=== PATIENT | male | born 1960 | race Caucasian/White ===

== ENCOUNTER 2021-01-27 15:21 | Emergency (ER) | payer BC ==
[~2021-01-27] VITALS: Ht 179.1 cm; Wt 90.9 kg
[~2021-01-27 15:21] MED LIST: NORCO 325 MG-51 TAB PO; NORCO 325 MG-7.1 TAB PO; SUDAFED 12HR120 MG PO
[2021-01-27 15:43] VITALS: BP 166/92; TEMP 98
[2021-01-27 16:53] VITALS: PULSE 73
== END 2021-01-27 16:53 | disposition home or self-care (01) ==
LOC: COL.ER 15:21
DX: M79.89 Other specified soft tissue disorders (principal)

== ENCOUNTER → 2021-01-28 | Outpatient (CLI) | payer BC | LOC: COL.VAS 08:10 | DX: Z13.6 Encounter for screening for cardiovascular disorders (principal); M79.89 Other specified soft tissue disorders ==